=== PATIENT | female | born 1995 | race Caucasian/White ===

== ENCOUNTER 2017-06-13 11:06 | Inpatient (IN) | payer OTHER ==
[2017-06-13 11:39] VITALS: BMI 47.6
[2017-06-13] MEDS ORDERED: Penicillin G Potassium 5 MILL.UNITS VIAL ONE (11:56)
[2017-06-13] MEDS ORDERED: Ondansetron HCl/PF 4 MG/2 ML Vial IVP PRN ×2 (12:22→21:32)
[2017-06-13] MEDS ORDERED: Ibuprofen 800 MG TAB PO PRN (12:22)
[2017-06-13] MEDS ORDERED: Lidocaine 1% (PF) 30 ML VIAL SC PRN (12:22)
[2017-06-13] MEDS ORDERED: Meperidine HCl/PF 25 MG/ML VIAL IM/IV PRN (12:22)
[2017-06-13] MEDS ORDERED: Zolpidem Tartrate 5 MG TAB PO PRN ×2 (12:22→21:32)
[2017-06-13] MEDS ORDERED: HYDROcodone/Acetaminophen 5/325 mg Tablet PO PRN ×4 (12:22→21:32)
[2017-06-13] MEDS ORDERED: Promethazine HCl 25 MG/ML VIAL IM PRN (12:22)
[2017-06-13] MEDS ORDERED: LR 500 ML/Oxytocin 10 units 500 ML IV SCH (12:30)
[2017-06-13] MEDS ORDERED: Fentanyl 4 mcg/Marc 0.1% Cadd 100 ML ONE (13:25)
[2017-06-13 13:29] LABS: Hematocrit 36.6 % (36.0-47.0); Mean Platelet Volume 8.5 fL (7.4-10.4); Red Blood Cell (RBC) Count 4.08 mill/uL (4.20-5.40); White Blood Cell (WBC) Count 10.7 thou/uL (4.8-10.8)
[2017-06-13 13:39] LABS: AST (SGOT) 21 U/L (5-34)
[2017-06-13 13:40] LABS: ALT (SGPT) 33 U/L (8-55)
[2017-06-13] MEDS ORDERED: Penicillin G Potassium 5 MILL.UNITS in Sodium Chloride 0.9% 100 ML IVPB SCH (15:00)
[2017-06-13] MEDS: Penicillin G 2.5 MILL.units 2.5 MILL.UNITS in Premix Bag 1 BAG IVPB SCH ×3 (16:05→20:01)
[2017-06-13] MEDS: LR / Pitocin 40 units/1000 ml 1,000 ML IV PRN ×2 (20:40→23:19)
[2017-06-13] MEDS ORDERED: Benzocaine/Menthol 20-0.5% 60 ML CAN TOP PRN (21:32)
[2017-06-13] MEDS ORDERED: Preparation H Ointment 28 GM TUBE PR PRN (21:32)
[2017-06-13] MEDS ORDERED: diphenhydrAMINE HCl 25 MG CAP PO PRN (21:32)
[2017-06-13] MEDS ORDERED: Milk Of Magnesia 30 ML UDCUP PO PRN (21:32)
[2017-06-13] MEDS ORDERED: Adacel (T-DAP) 0.5 ML VIAL IM ONE (21:32)
[2017-06-13] MEDS ORDERED: Bisacodyl 10 MG SUPP PR PRN (21:32)
[2017-06-13] MEDS ORDERED: Lanolin Ointment 7 GM TUBE TOP PRN (21:32)
[2017-06-13] MEDS ORDERED: LR / Pitocin 40 units/1000 ml 1,000 ML IV SCH (21:45)
[2017-06-14] MEDS: Penicillin G 2.5 MILL.units 2.5 MILL.UNITS in Premix Bag 1 BAG IVPB SCH ×5 (00:35→19:19)
[2017-06-14] MEDS: Ibuprofen 800 MG TAB PO SCH ×4 (00:35→21:44)
--- NOTE | 2017-06-14 00:44 | OP ---
DATE OF SERVICE: 06/13/2017 ADMITTING DIAGNOSES: 1. A 21-year-old G1 at 38 weeks and 1 day with gestational hypertension. 2. Advanced cervical dilation with plans for augmentation of labor. 3. Group B streptococcus positive. 4. Elevated body mass index greater than 42. POSTOPERATIVE DIAGNOSES: 1. A 21-year-old G1 at 38 weeks and 1 day with gestational hypertension. 2. Advanced cervical dilation with plans for augmentation of labor. 3. Group B streptococcus positive. 4. Elevated body mass index greater than 42. 5. Live born male by spontaneous vaginal delivery with Apgars of 9 and 9 at one and five minutes, r espectively. SURGEON: Monica Brewer M.D. PROCEDURE PERFORMED: Spontaneous vaginal delivery. ESTIMATED BLOOD LOSS: 350 mL ANESTHESIA: Epidural. CLINICAL HISTORY: This patient is a 21-year-old G1, who had a complicated by third trimest er onset of gestational hypertension. The patient had no other symptoms for preeclampsia; however, with repetitive of blood pressure values greater than 6 hours apart, the diagnosis was made. She, a t 38 weeks, also had advanced cervical dilation and on the day of presentation was noted to have reg ular contractions with advanced cervical dilation to 4 cm, 80% effaced, and -1 station. The patient also was noted to be GBS positive and due to all these confounding factors, the plan was to admit h er for delivery. The patient was sent over from the office to [facility] and was directly admitted. Preeclampsia labs were obtained and they were noted to be normal. Her pressures also normalized a fter IV fluids were started. The patient had an amniotomy that was performed with clear fluid and s he progressed to 5 cm, however, did not progress beyond that. An epidural was requested for materna l analgesia and after that was placed, then the patient was started on Pitocin per protocol. The pa tient made cervical dilation on the appropriate time frame and was complete and +2 station at the ti ky to push. DETAILS OF PROCEDURE: The patient with good maternal effort was able to push and bring the ve rtex to the FLACA position. She delivered the head, the anterior shoulder, followed by the posterior shoulder, followed by the remainder of the infant's body was delivered. The cord was doubly clamped and then cut by the father of the baby. The baby was bulb suctioned at the perineum and then place d on the mother's abdomen for stimulation and [id number]. The cord blood was obtained and the chavez kline was then delivered spontaneously intact with a 3-vessel cord. Exploration of the vagina, intr oitus, and cervix noted periurethral lacerations that were repaired with interrupted sutures of 3-0 Vicryl. There also was a first-degree midline laceration that was also repaired in a running fashio n with excellent hemostasis noted afterwards. The patient tolerated the procedure well and was able to recover in Labor and Delivery in satisfactory condition with her . Again, the was a male. Weight was unavailable at the time of the dictation. Apgars were 9 and 9 at one and five m inutes, respectively. There were no other issues surrounding this delivery. All needle, sponge, la p, and instrument counts were correct x2 at the end of the procedure.
[2017-06-14] MEDS: Ferrous Sulfate 325 MG TAB PO SCH ×2 (09:12→17:44)
[2017-06-14] MEDS: Docusate (Surfak) 240 MG CAP PO SCH ×2 (09:12→21:43)
[2017-06-14] MEDS: Prenatal Vitamin 1 TAB PO SCH (09:12)
[2017-06-14] MEDS ORDERED: Bupivacaine 0.25% 10 ML VIAL ONE (14:38)
[2017-06-15] MEDS: Penicillin G 2.5 MILL.units 2.5 MILL.UNITS in Premix Bag 1 BAG IVPB SCH ×3 (04:05→09:12)
[2017-06-15] MEDS: Ibuprofen 800 MG TAB PO SCH (06:21)
[2017-06-15 08:54] VITALS: BP 119/75; TEMP 97.9
[2017-06-15] MEDS: Prenatal Vitamin 1 TAB PO SCH (09:12)
[2017-06-15] MEDS: Docusate (Surfak) 240 MG CAP PO SCH (09:12)
[2017-06-15] MEDS: Ferrous Sulfate 325 MG TAB PO SCH (09:19)
== END 2017-06-15 12:55 | disposition home or self-care (01) | DRG 775 ==
LOC: L&D/OP 11:06 → L&D 11:24 → 3SW 23:25 → EDSTATUS 06-26 11:22
PROVIDERS: ADMIT Obstetrics & Gynecology; ATTEND Obstetrics & Gynecology
PROC: 10E0XZZ Delivery of Products of Conception, External Approach (ICD-10-PCS; principal; 2017-06-13)
PROC: 10907ZC Drainage of Amniotic Fluid, Therapeutic from Products of Conception, Via Natural or Artificial Opening (ICD-10-PCS; 2017-06-13)
PROC: 0HQ9XZZ Repair Perineum Skin, External Approach (ICD-10-PCS; 2017-06-13)
PROC: 0UQMXZZ Repair Vulva, External Approach (ICD-10-PCS; 2017-06-13)
DX: O13.4 Gestational [pregnancy-induced] hypertension without significant proteinuria, complicating childbirth (principal); Z68.41 Body mass index [BMI] 40.0-44.9, adult; O99.824 Streptococcus B carrier state complicating childbirth; O70.0 First degree perineal laceration during delivery; O71.82 Other specified trauma to perineum and vulva; O99.214 Obesity complicating childbirth; E66.9 Obesity, unspecified; Z37.0 Single live birth; Z3A.38 38 weeks gestation of pregnancy
CPT/HCPCS: 84450; 84460; 85027; 86780; 87340; J2001; J2540; J7120; S0020

== ENCOUNTER 2017-12-01 16:02 | Emergency (ER) | payer OTHER, SELFPAY ==
[~2017-12-01 16:02] MED LIST: Iopamidol 370 76% 100 ML VIAL ONE
[2017-12-01] MEDS ORDERED: Lidocaine Viscous Sol 2% 15 ml UD Cup ONE (16:32)
[2017-12-01] MEDS ORDERED: Milk Of Magnesia 30 ML UDCUP ONE (16:32)
[2017-12-01 16:54] LABS: Bilirubin Negative (Negative); Blood, Urine Negative (Negative); Clarity Slightly Cloudy (Clear); Glucose, Urine (Dipstick) Negative (Negative); Leukocyte Trace (Negative); Nitrite Negative (Negative); Protein, Urine (Dipstick) Negative (Neg-Trace); pH, Urine 7.5 (5.0-9.0)
[2017-12-01 16:56] LABS: Pregnancy Test - Urine (BHCG) Negative (Negative); Pregu Control Background? CLEAR/WHITE (CLR/WHITE); Pregu Control Bar Appear? YES (CONTROL BAR)
[2017-12-01 17:01] LABS: Bacteria/HPF 1+ HPF (None Seen); RBC/HPF 0-3 HPF (0-3); Squamous Epithelial 0-3 HPF (0-3); WBC/HPF 0-3 HPF (0-3)
[2017-12-01 17:40] LABS: #Basophils 0.1 thou/uL (0.0-0.2); #Eosinphils 0.1 thou/uL (0.0-0.7); #Monocytes 0.5 thou/uL (0.11-0.59); #Neutrophils 6.2 thou/uL (1.40-6.50); %Basophils 0.8 % (0.0-1.0); %Lymphocytes 23.1 % (21.0-51.0); %Monocytes 5.2 % (0.0-10.0); %Neutrophils 69.8 % (42.0-75.0); Mean Corpuscular HGB CONC 32.5 g/dL (32.0-36.0); Mean Corpuscular Hemoglobin 26.3 pg (27.0-31.0); Mean Corpuscular Volume 80.9 fl (81.0-99.0); Mean Platelet Volume 7.2 fL (7.4-10.4); Platelet Count 398 thou/uL (130-400); RBC Distribution Width 13.6 % (11.5-14.5); Red Blood Cell (RBC) Count 4.59 mill/uL (4.20-5.40); White Blood Cell (WBC) Count 8.8 thou/uL (4.8-10.8)
[2017-12-01 17:53] LABS: ALT (SGPT) 266 U/L (8-55); AST (SGOT) 316 U/L (5-34); Alkaline Phosphatase 116 U/L (40-150); Anion Gap 14 mmol/L (10-20); BUN (Urea Nitrogen) 10 mg/dL (7.0-18.7); Bilirubin, Total 1.1 mg/dL (0.2-1.2); Calc. Creatinine Clearance 0 mL/min (70-130); Calcium 9.4 mg/dL (7.8-10.44); Carbon Dioxide 23 mmol/L (22-29); Chloride 107 mmol/L (98-107); Estimated GFR-MDRD Greater than 90; Globulin 3.8 g/dL (2.4-3.5); Glucose 115 mg/dL (70-105); Potassium 3.7 mmol/L (3.5-5.1); Protein, Total 7.8 g/dL (6.0-8.3); Sodium 140 mmol/L (136-145)
[2017-12-01] MEDS ORDERED: Ketorolac Tromethamine 30 MG/ML VIAL ONE (18:16)
--- NOTE | 2017-12-01 19:04 | RAD ---
PA AND LATERAL OF THE CHEST 12/01/17 INDICATION: Rib pain with breathing. COMPARISON: None. FINDINGS: No focal consolidation is evident. Cardiomediastinal silhouette is normal. No definite acute osseous abnormality is evident. IMPRESSION: No acute cardiopulmonary abnormality. POS: [facility]
--- NOTE | 2017-12-01 20:52 | CT ---
CTA THORAX UTILIZING IV CONTRAST AND 3D REFORMATTED IMAGING 12/01/17 INDICATION: Right pain with breathing. FINDINGS: No central or segmental pulmonary embolus is evident. No consolidation, pleural effusion or pneumotho rax is evident. No pathologically enlarged lymph nodes are present. No acute osseous abnormality is e vident. IMPRESSION: Negative exam. POS: [facility]
== END 2017-12-01 19:40 | disposition home or self-care (01) ==
LOC: SCSER 16:02
DX: R10.13 Epigastric pain (principal); Z79.899 Other long term (current) drug therapy
CPT/HCPCS: 36415; 71046; 71275; 80053; 81003; 81015; 81025; 85025; 85379; 93005; 96374; J1885

== ENCOUNTER 2017-12-06 11:01 | Outpatient (CLI) | payer OTHER ==
--- NOTE | 2017-12-06 13:17 | ULT ---
ABDOMINAL ULTRASOUND: History: Right upper quadrant abdominal pain. FINDINGS: Images of the gallbladder reveal mobile echogenic gallstones. Gallbladder wall is normal caliber. Com mon duct is normal caliber at 5 mm. The visualized aorta and IVC appear unremarkable. The visualized liver, spleen, and kidneys appear unremarkable. No hydronephrosis. Pancreas is partially visualized a nd appears unremarkable as imaged but is mostly obscured. IMPRESSION: Cholelithiasis. POS: [facility]
== END 2017-12-06 11:02 | disposition home or self-care (01) ==
LOC: SCSULT 11:01
PROVIDERS: ATTEND Family Medicine
DX: R10.11 Right upper quadrant pain (principal); K80.20 Calculus of gallbladder without cholecystitis without obstruction
CPT/HCPCS: 76700